=== PATIENT | female | born 1980 | race Caucasian/White ===

== ENCOUNTER 2022-09-22 08:00 | Outpatient (NON) | payer OTHER, SELFPAY | END 2022-09-22 08:01 | disposition home or self-care (01) | LOC: ANHLAB 09-24 13:27 | PROVIDERS: Visit Provider Nurse Practitioner | DX: C43.72 Malignant melanoma of left lower limb, including hip (principal) | CPT/HCPCS: 88305 ==

== ENCOUNTER 2022-10-08 00:57 | Day surgery (SDC) | payer OTHER, SELFPAY ==
[2022-09-30 15:08] VITALS: BMI 22.8
--- NOTE | 2022-09-30 15:16 | PC.NURSE ---
Report to the Outpatient Waiting Room, entrance under the green pavilion located off [facility], at time 0600 on date 10/08/22. Planned Procedure Time: 0730. Time changes happen often and if your time is changed the preop area will call you the afternoon before. - You and your visitor will be asked to self-screen and do not enter if you have any COVID symptoms. - A mask is optional within the hospital at this time. Patients may have clear liquids (water, carbonated beverages, clear teas, apple juice) until 3 hours prior to surgery with a maximum of 20 ounces. - No food from midnight until time of surgery Take the following medications with a SIP of water the morning of surgery: N/A DO NOT STOP ANY OF YOUR OTHER PRESCRIPTION MEDICATIONS PRIOR TO SURGERY ?EXCEPT THE FOLLOWING Medications to discontinue per physician: N/A Date to take last dose: N/A Please no make-up, nail yakut, hairspray, perfume, deodorant, or body powder the day of surgery. No jewelry (including any body piercings) or valuables the day of surgery, leave them at home. Please take a shower or bath the night before, or the morning of, surgery with an antibacterial soap. Wear comfortable, loose fitting clothing. - Jewelry must be removed prior to entering the operating room. Rings and piercings that are not removed may be cut off. - The hospital will not accept responsibility for valuables. - Please leave all valuables, including medications, at home the day of surgery. If you are going home after surgery, a licensed refrigerated company driver must drive you home. - NO public transportation without another adult if you receive anesthesia. - We recommend that an adult stay with you for 24 hours following discharge. - We also recommend that you do not drive, make important decision, drink alcoholic beverages, or take any drugs that were not prescribed by your health care provider for at least 24 hours after your discharge time. Follow any additional instructions given to you from your surgeon. If you or anyone in your household have experienced Covid symptoms in the past week, please notify your surgeon or the nurse liaison at the phone number below for possible testing. Telephone instructions given to PT - TEE STALLWORTH and asked if any additional questions and then verbalized understanding. Patient advised to call surgeon office or pre surgery nurse liaison [phone] if any additional questions.
--- NOTE | ~2022-10-08 | NM_ITS ---
EXAMINATION: NM sentinel node w imaging DATE: 10/08/2022 08:12 INDICATION: Left lower limb melanoma. TECHNIQUE: 0.496 mCi Tc-99m filtered sulfur colloid was injected in two aliquots around the skin lesi on in left lower limb. Scintigrams were obtained. FINDINGS: There is a sentinel node in left inguinal chain. IMPRESSION: 1. [place] node in left inguinal chain. Reviewed, dictated and finalized at location A.
[2022-10-08] MEDS: LACTATED RINGERS 1,000 ML 30 ML IV CONT (07:00)
[2022-10-08 07:50] VITALS: BP 128/79; PULSE 66; RESP 16; TEMP 36.6; O2SAT 100
--- NOTE | 2022-10-08 08:24 | P.PNAN_ITS ---
Anes - Initial Pre Proc Eval Procedure: Operation Date: 10/08/22 08:30 Proposed Procedures p Excision of Melanoma Left Anterior Lateral Upper Leg with - Bienvenido Bruce MD s [place] Lymph Node Biopsy - Bienvenido Bruce MD Date/Time: 10/08/22 08:24 Surgeon: Bienvenido Bruce MD Pre Op Diagnosis: melanoma Patient Data Age: 42 Gender: F Height: 1.73 m Weight: 70.7 kg Last Vital Signs Temp 97.9 F 10/08/22 07:50 Pulse 66 10/08/22 07:50 Resp 16 10/08/22 07:50 BP 128/79 10/08/22 07:50 Pulse Ox 100 10/08/22 07:50 O2 Del Method Room Air 10/08/22 07:50 Allergies Allergy/AdvReac Type Severity Reaction Status Date / Time amoxicillin Allergy Unknown Rash Verified 09/30/22 15:07 codeine AdvReac Unknown Vomiting Verified 09/30/22 15:07 Home Medications Medication Instructions Recorded Confirmed Type No Home Medications 09/30/22 09/30/22 History Patient hx anesthesia problems: post op nausea/vomiting (scopolamine patch applied) Family hx anesthesia problems: none Results Review: All pre-operative results and documents have been reviewed as part of the pre- operative evaluation. [facility] Social History Social History (System 06/08/19 @ 11:50 by Leslie Gómez) Smoking status: Never smoker Alcohol intake: current Drinks per week: 4 Substance use: current Substance use type: marijuana Other substance usage details: GUMMIES FOR SLEEP Living arrangements: with family Spiritual care concerns: No Anes - Eval Final PreProcedure Day of Procedure 10/08/22 08:24 Patient weight: normal Heart: regular rate and rhythm Lungs: clear to auscultation Airway: Mallampati scale class II Neurological: alert and oriented Last oral intake: >/= 8 hours ASA classification: II Emergent: no Anesthetic plan: proceed Anesthesia type and monitoring: general LMA and standard monitoring Results Review: All pre-operative results and documents have been reviewed as part of the pre- operative evaluation. Informed Consent: The patient's anesthetic plan and its attendant risks and benefits were discussed with the patient/family/POA. Questions were solicited and answers provided to the satisfaction of the patient/family/POA.
--- NOTE | 2022-10-08 08:31 | WPDHPUPDATE1 ---
History and Physical Update Update Date/Time: 10/08/22 08:31 History and Physical has been reviewed, including an updated exam of the patient. There are NO changes in the patient's condition. Risks, benefits, and alternatives have been discussed and questions answered. Patient agrees to proceed with procedure.
[2022-10-08] MEDS: SCOPOLAMINE 1.5 MG PATCH TRANSDERM (08:32)
--- NOTE | 2022-10-08 08:32 | W.PM.PROC2 ---
Procedure Note - Detailed Date of Procedure 10/08/22 Pre-op Diagnosis melanoma Post-op Diagnosis Same Procedure Performed 1. Wide excision left anterior thigh 7 cm with 8.5cm closure 2. Left inguinal sentinel lymph node biopsy Surgeon Bienvenido Bruce MD Anesthesia General Findings Single sentinel lymph node identified left inguinal Description of Procedure Preoperatively the risks, benefits, alternatives were discussed in extensive detail. I want him to be very realistic about the risks involved as well as expectations. Made sure answered all their questions to their satisfaction. We discussed NCCN guidelines. Discussed her choice to deviate from these guidelines. Risks, benefits, alternatives of these choices. I want to make sure she was well informed of her choice. We also discussed surgical margins.All questions were answered to her satisfaction. She understands despite optimal treatment she is at risk of metastatic spread. Consent obtained. Melanoma was marked in the preoperative holding area with her verification which was clearly visible. She had been injected by Radiology and verified the left inguinal sentinel lymph node. She was taken to the operating room placed supine on the operating room table. Anesthesia provided by anesthesiology. She was prepped and draped in a standard sterile fashion. Surgical time-out was taken. Identified the lymph node with the probe and was marked. 1% lidocaine and 0.25% Marcaine with epinephrine was used anesthetize locally. Fifteen blade used to make an incision over this. Dissection was continued into the node was identified and removed. Background was less than 10%. Single node identified no evidence of neurovascular other structure injury. I did cauterize the inflow and outflow lymphatic channel. This was closed with 2-0 Vicryl deep followed by 3-0 Monocryl, 4-0 Monocryl subcuticular, and tissue glue. I marked out the melanoma excision with well greater than 1 cm margins. I tried to maximize this margin based on her tissue compliance approaching medially 2 cm margin per her request. 1% lidocaine and 0.25% Marcaine with epinephrine was used anesthetize locally. A 15 blade used to make an incision around the mass. Dissection was continued down to the fascia and this was removed as a single specimen then sent to pathology. Verified strict hemostasis. This was closed in many layers to obliterate all space with 2-0 Vicryl deep followed by 3-0 Monocryl and vertical mattress 3-0 nylon. Dressings were placed. She tolerated the procedure well. Estimated Blood Loss 5 Drains No Packing No Pathology Yes (1. Melanoma left anterior thigh. 2. Left inguinal sentinel lymph node) Complications No immediate complications Condition Stable Disposition PACU
[2022-10-08] MEDS: ceFAZolin 2 GM/D5W 50 ML 2 GM/50 ML BAG IVPB (08:36)
[2022-10-08] MEDS: BUPivacaine HCL 0.25% PF 30 ML VIAL INFILTRATE (09:08)
[2022-10-08] MEDS: LIDO 1%/EPINEPHRINE 1:100,000 50 ML VIAL INFILTRATE (09:10)
--- NOTE | 2022-10-08 09:14 | SUR.OPER ---
[place] Lymph Node sent to [facility] per JAG Zheng. Received by Erma in Lab.
[2022-10-08] MEDS: KETOROLAC 30 MG/ML VIAL (*BKC) IV PUSH (09:20)
[2022-10-08 09:33] VITALS: BP 104/59; PULSE 59; RESP 12; O2SAT 100
[2022-10-08 10:00] VITALS: BP 97/58; PULSE 50; RESP 14
[2022-10-08 10:30] VITALS: BP 104/81; PULSE 74; RESP 14
[2022-10-08 10:50] VITALS: BP 115/62; PULSE 57; RESP 14
== END 2022-10-08 10:55 | disposition home or self-care (01) ==
PROVIDERS: Visit Provider Surgery Plastic and Reconstructive Surgery
PROC: (CPT 11606; principal; 2022-10-08 08:30)
PROC: (CPT 11606; 2022-10-08 08:30)
DX: C43.72 Malignant melanoma of left lower limb, including hip (principal); F12.90 Cannabis use, unspecified, uncomplicated
CPT/HCPCS: 11606; 12034; 38531; 78195; 88305; 88307; 88342; A9270; A9520; J0690; J1100; J1885; J2250; J2405; J2704; J3010; J7120

== ENCOUNTER 2022-11-13 11:28 | Outpatient (CLI) | payer OTHER, SELFPAY ==
[2022-11-13 11:53] LABS: Basophils Percent Auto 0.3 % (0.2-1.2); Eosinophils Absolute Auto 0.1 K/mm3 (0-0.3); Eosinophils Percent Auto 1.3 % (0-4.4); Hemoglobin 13.4 g/dL (12.0-15.0); Immature Granulocyte Absolute 0.02 K/mm3 (0.00-0.031); Immature Granulocyte Percent A 0.3 % (0-0.5); Lymphocytes Absolute Auto 1.83 K/mm3 (0.9-3.2); Mean Corpuscular HGB Conc 33.5 g/dl (32-36); Mean Corpuscular Hemoglobin 30.4 pg (26-34); Mean Corpuscular Volume 90.7 fl (80-100); Mean Platelet Volume 10.7 fl (7.4-10.4); Monocytes Absolute Auto 0.2 K/mm3 (0.1-0.6); Monocytes Percent Auto 3.4 % (2.6-8.5); Neutrophils Absolute Auto 3.9 K/mm3 (1.3-6.7); Neutrophils Percent Auto 64.7 % (45.5-73.1); Platelet Count Result 142 k/mm3 (150-375); Red Blood Count 4.41 M/mm3 (4.2-5.4); White Blood Count 6.1 K/mm3 (4.5-10.0)
[2022-11-13 16:07] LABS: Alanine Aminotransferase 16 U/L (6-35); Albumin Level 4.7 g/dL (3.5-5.1); Alkaline Phosphatase 57 U/L (38-126); Anion Gap 7 mmol/L (8-16); Aspartate Amino Transferase 26 U/L (14-36); Blood Urea Nitrogen 25 mg/dL (7-17); Calcium 9.5 mg/dL (8.4-10.2); Carbon Dioxide 28 mmol/L (22-30); Chloride 102 mmol/L (98-107); Estimated Glomerular Filt Rate > 60; Glucose 94 mg/dL (65-110); Lactate Dehydrogenase 156 U/L (120-246); Potassium 4.2 mmol/L (3.4-5.0); Sodium 137 mmol/L (137-145)
== END 2022-11-13 11:29 | disposition home or self-care (01) ==
PROVIDERS: Visit Provider Internal Medicine Hematology & Oncology
DX: C43.72 Malignant melanoma of left lower limb, including hip (principal)
CPT/HCPCS: 36415; 80053; 83615; 85025

== ENCOUNTER 2022-12-29 12:50 | Outpatient (NON) | payer OTHER, SELFPAY | END 2022-12-29 12:51 | disposition home or self-care (01) | LOC: ANHLAB 12-31 12:53 | PROVIDERS: Visit Provider Nurse Practitioner | DX: D22.61 Melanocytic nevi of right upper limb, including shoulder (principal) | CPT/HCPCS: 88305 ==

== ENCOUNTER 2023-02-03 11:58 | Outpatient (NON) | payer OTHER, SELFPAY | END 2023-02-03 11:59 | disposition home or self-care (01) | PROVIDERS: Visit Provider Nurse Practitioner | DX: D22.5 Melanocytic nevi of trunk (principal) | CPT/HCPCS: 88305 ==

== ENCOUNTER 2023-05-05 15:30 | Outpatient (CLI) | payer BC, SELFPAY ==
[2023-05-05 15:45] LABS: Basophils Percent Auto 0.3 % (0.2-1.2); Eosinophils Absolute Auto 0.1 K/mm3 (0-0.3); Eosinophils Percent Auto 1.4 % (0-4.4); Hematocrit 38.2 % (37.0-47.0); Hemoglobin 12.9 g/dL (12.0-15.0); Immature Granulocyte Absolute 0.01 K/mm3 (0.00-0.031); Immature Granulocyte Percent A 0.2 % (0-0.5); Mean Corpuscular HGB Conc 33.8 g/dl (32-36); Mean Corpuscular Hemoglobin 30.4 pg (26-34); Mean Corpuscular Volume 89.9 fl (80-100); Mean Platelet Volume 9.9 fl (7.4-10.4); Monocytes Absolute Auto 0.2 K/mm3 (0.1-0.6); Monocytes Percent Auto 3.7 % (2.6-8.5); Neutrophils Absolute Auto 3.6 K/mm3 (1.3-6.7); Neutrophils Percent Auto 60.4 % (45.5-73.1); Platelet Count Result 155 k/mm3 (150-375); Red Blood Count 4.25 M/mm3 (4.2-5.4); Red Cell Distribution Width 12.3 % (11.5-14.5); White Blood Count 5.9 K/mm3 (4.5-10.0)
[2023-05-05 16:32] LABS: Alanine Aminotransferase 16 U/L (6-35); Albumin Level 4.6 g/dL (3.5-5.1); Alkaline Phosphatase 54 U/L (38-126); Anion Gap 11 mmol/L (8-16); Aspartate Amino Transferase 29 U/L (14-36); Bilirubin,Total 0.8 mg/dL (0.2-1.3); Blood Urea Nitrogen 25 mg/dL (7-17); Calcium 9.2 mg/dL (8.4-10.2); Carbon Dioxide 24 mmol/L (22-30); Chloride 104 mmol/L (98-107); Estimated Glomerular Filt Rate > 60; Glucose 95 mg/dL (65-110); Lactate Dehydrogenase 157 U/L (120-246); Potassium 3.6 mmol/L (3.4-5.0); Sodium 139 mmol/L (137-145)
== END 2023-05-05 15:31 | disposition home or self-care (01) ==
LOC: ANHLAB 15:33
PROVIDERS: Visit Provider Internal Medicine Hematology & Oncology
DX: C43.72 Malignant melanoma of left lower limb, including hip (principal)
CPT/HCPCS: 36415; 80053; 83615; 85025

== ENCOUNTER 2023-11-10 11:27 | Outpatient (CLI) | payer BC, SELFPAY ==
[2023-11-10 11:41] LABS: Basophils Percent Auto 0.6 % (0.2-1.2); Eosinophils Absolute Auto 0.1 K/mm3 (0-0.3); Eosinophils Percent Auto 1.1 % (0-4.4); Hematocrit 38.9 % (37.0-47.0); Hemoglobin 12.7 g/dL (12.0-15.0); Immature Granulocyte Absolute 0.01 K/mm3 (0.00-0.031); Immature Granulocyte Percent A 0.2 % (0-0.5); Lymphocytes Absolute Auto 1.75 K/mm3 (0.9-3.2); Lymphocytes Percent Auto 32.2 % (18.3-44.2); Mean Corpuscular HGB Conc 32.6 g/dl (32-36); Mean Corpuscular Hemoglobin 30.2 pg (26-34); Mean Corpuscular Volume 92.6 fl (80-100); Monocytes Absolute Auto 0.2 K/mm3 (0.1-0.6); Monocytes Percent Auto 4.2 % (2.6-8.5); Neutrophils Absolute Auto 3.4 K/mm3 (1.3-6.7); Neutrophils Percent Auto 61.7 % (45.5-73.1); Platelet Count Result 157 k/mm3 (150-375); Red Cell Distribution Width 12.3 % (11.5-14.5); White Blood Count 5.4 K/mm3 (4.5-10.0)
[2023-11-10 12:07] LABS: Alanine Aminotransferase 19 U/L (6-35); Albumin Level 4.5 g/dL (3.5-5.1); Alkaline Phosphatase 59 U/L (38-126); Anion Gap 10 mmol/L (4-12); Aspartate Amino Transferase 41 U/L (14-36); Bilirubin,Total 0.9 mg/dL (0.2-1.3); Blood Urea Nitrogen 19 mg/dL (7-17); Calcium 9.3 mg/dL (8.4-10.2); Carbon Dioxide 28 mmol/L (22-30); Chloride 98 mmol/L (98-107); Estimated Glomerular Filt Rate > 60; Glucose 94 mg/dL (65-110); Lactate Dehydrogenase 143 U/L (120-246); Potassium 3.8 mmol/L (3.4-5.0); Sodium 136 mmol/L (137-145)
== END 2023-11-10 11:28 | disposition home or self-care (01) ==
LOC: ANHLAB 11:30
PROVIDERS: Visit Provider Internal Medicine Hematology & Oncology
DX: C43.72 Malignant melanoma of left lower limb, including hip (principal)
CPT/HCPCS: 36415; 80053; 83615; 85025

== ENCOUNTER 2023-12-24 07:00 | Outpatient (NON) | payer BC, SELFPAY | END 2023-12-24 07:01 | disposition home or self-care (01) | LOC: ANHLAB 12-25 07:17 | PROVIDERS: Visit Provider Surgery Plastic and Reconstructive Surgery | DX: D22.72 Melanocytic nevi of left lower limb, including hip (principal); L81.4 Other melanin hyperpigmentation; D48.5 Neoplasm of uncertain behavior of skin | CPT/HCPCS: 88305; 88342 ==

== ENCOUNTER 2024-05-10 11:05 | Outpatient (CLI) | payer BC, SELFPAY ==
[2024-05-10 11:22] LABS: Basophils Percent Auto 0.4 % (0.2-1.2); Eosinophils Percent Auto 0.4 % (0-4.4); Hematocrit 37.6 % (37.0-47.0); Hemoglobin 12.7 g/dL (12.0-15.0); Immature Granulocyte Absolute 0.02 K/mm3 (0.00-0.031); Immature Granulocyte Percent A 0.3 % (0-0.5); Lymphocytes Absolute Auto 1.75 K/mm3 (0.9-3.2); Lymphocytes Percent Auto 22.7 % (18.3-44.2); Mean Corpuscular HGB Conc 33.8 g/dl (32-36); Mean Corpuscular Hemoglobin 30.2 pg (26-34); Mean Corpuscular Volume 89.5 fl (80-100); Mean Platelet Volume 10.3 fl (7.4-10.4); Monocytes Absolute Auto 0.3 K/mm3 (0.1-0.6); Monocytes Percent Auto 3.5 % (2.6-8.5); Neutrophils Absolute Auto 5.6 K/mm3 (1.3-6.7); Neutrophils Percent Auto 72.7 % (45.5-73.1); Platelet Count Result 165 k/mm3 (150-375); Red Cell Distribution Width 12.5 % (11.5-14.5); White Blood Count 7.7 K/mm3 (4.5-10.0)
--- OUTSIDE RECORDS SUMMARY | 2024-05-10 12:51 | XMS_ITS | Encounter Summary ---
Author Organization [facility] Address [address] [place] [address] Care Team Providers Care Head Bookkeeper Name Role Phone Unavailable Primary Care Provider Unavailabl e Encounter Details Date Type Department Care Team (Late st Contact Info) Description 05/07/2024 External Device Data ST[place] ABSTRACTION Provider, Abstract NO ADDRESS ON FILE Social History Tobacco Use Types Packs/Day Years Used Date Smoking Tobacco: Never Smokeless Tobacco: Never Alcohol Use Standard Drinks/Week Comments Yes 1 (1 standard drink = 0.6 oz pur e alcohol) Comments No Sex and Gender Information Value Date Recorded Sex Assigned at Not on file Legal Sex Female 2:10 PM CDT Gender Identity Not on file Sexual Orientation Not on file documented as of this encounter Plan of Treatment Upcoming Encounters Date Type Department Care Team (Late st Contact Info) Description 05/13/2024 9:15 AM CDT Office Visit [facility] Oncology and Hematology - [place] [address] [place] [address] [facility] [address] [place] [address] Shilo Canas MD [address] [facility] [address] [place] [address] documented as of this encounter Visit Diagnoses Not on filedocumented in this encounter
--- OUTSIDE RECORDS SUMMARY | 2024-05-10 12:51 | XMS_ITS | Referral Summary ---
Author Organization [facility] Address [address] [place] [address] Care Team Providers Care Color Specialist Name Role Phone Leon Durán MD Primary Care Provider [phone] Christiano Calvin MD Unavailable + [phone] Allergies Active Allergy Reactions Criticality Noted Date Comments Amoxicillin Rash Reaction: RASH Codeine Nausea only,Vomiting Reaction: NAUSEA, VOMITING, Fexofenadine Rash Reaction: RASH Medications No known medications Active Problems Problem Noted Date Diagnosed Date Encounter to establish care 05/08/2021 Assessment & Plan (05/08/2021 10:13 AM PATHOLOGY SPECIALIST): A initial well visit to establish care has been performed today. Susan Ball is up to date on screening tests. She is in need of None- no screening indicated at this time- these have been ordered. She is not up to date on needed preventative vaccinations. Immunizations Immunization Administration Dates Next Due Influenza, Quadrivalent, Bailey l Culture-based MDCK, Preservative Free, Antibiotic Free, Intramuscular 12/10/2020,12/16/2017 Influenza, Quadrivalent, Spl it, Preservative Free, Intramuscular 12/03/2019,12/22/2018 Tdap 06/28/2013 Social History Tobacco Use Types Packs/Day Years Used Date Smoking Tobacco: Never Smokeless Tobacco: Never Social Connection and Isolat ion Panel [NHANES] Answer Date Recorded Frequency of Communication w ith Friends and Family Not on file 05/08/2021 Frequency of Social Gatherin gs with Friends and Family Not on file 05/08/2021 How often do you attend [facility] or hindu services? More than 4 times per year 05/08/2021 Do you belong to any clubs o r organizations such as restorationism groups, unions, fraternal or athletic groups, or school groups? Yes 05/08/2021 How often do you attend meet ings of the clubs or organizations you belong to? More than 4 times per year 05/08/2021 Are you , , di vorced, , never , or living with a partner? 05/08/2021 AUDIT-C Answer Date Recorded Q1: How often do you have a drink containing alc ohol? 2-4 times a month 05/08/2021 Q2: How many drinks containi ng alcohol do you have on a typical day when you are drinking? 3 or 4 05/08/2021 Q3: How often do you have si x or more drinks on one occasion? 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 Not on file Not on file Last Filed Vital Signs Vital Sign Reading Time Taken Comments Blood Pressure 120/80 05/08/2021 9:31 AM PATHOLOGY SPECIALIST Pulse 67 05/08/2021 9:31 AM PATHOLOGY SPECIALIST Temperature 36 C (96.8 F) 05/08/2021 9:31 AM PATHOLOGY SPECIALIST Respiratory Rate 16 05/08/2021 9:31 AM PATHOLOGY SPECIALIST Oxygen Saturation 98% 05/08/2021 9:31 AM PATHOLOGY SPECIALIST Inhaled Oxygen Concentration - - Weight 68 kg (150 lb) 05/08/2021 9:31 AM PATHOLOGY SPECIALIST Height 172.7 cm (5' 8 ) 05/08/2021 9:31 AM PATHOLOGY SPECIALIST Body Mass Index 22.81 05/08/2021 9:31 AM PATHOLOGY SPECIALIST Plan of Treatment Not on file Procedures Procedure Name Priority Date/Time Associated Diagnosis Comments HM PAP SMEAR WITH HPV Routine 12/27/2020 from Last 3 Months or Most Recently Relevant to Health Maintenance Results * HM PAP SMEAR WITH HPV (12/27/2020) Scribed Pap Smear w/HPV Normal us Historical Provider HEALTH MAINTENANCE Final Result from Last 3 Months or Most Recently Relevant to Health [place] [address] [place] [address] Care Teams Color Specialist Relationship Specialty Start Date End Date Leon Durán MD [address] [place] [address] PCP - General Family Medicine 05/07/21 Christiano Calvin MD [address] [place] [address] DR GONSALES B [address] [address] Consulting Physician Obstetrics and Gynecology 05/08/21
--- OUTSIDE RECORDS SUMMARY | 2024-05-10 12:51 | XMS_ITS | Clinical Summary ---
Author Organization [facility] Address [address] [place] [address] Care Team Providers Care Dental Appliance Fixer Name Role Phone Leon Durán MD Primary Care Provider [phone] Christiano Calvin MD Unavailable + [phone] Allergies Active Allergy Reactions Criticality Noted Date Comments Amoxicillin Rash Reaction: RASH Codeine Nausea only,Vomiting Reaction: NAUSEA, VOMITING, Fexofenadine Rash Reaction: RASH Medications No known medications Active Problems Problem Noted Date Diagnosed Date Encounter to establish care 05/08/2021 Assessment & Plan (05/08/2021 10:13 AM GLOVE OPERATOR): A initial well visit to establish care [...] it, Preservative Free, Intramuscular 12/03/2019,12/22/2018 Tdap 06/28/2013 Family History Medical History Relation Name Comments Hypertension Brother 1 Kawasaki disease Brother 2 Glaucoma Father Hyperlipidemia Father Hypertension Father Hypertension Maternal Grandfather Pancreatic cancer Maternal Grandfather COPD Maternal Grandmother Cardiomyopathy Maternal Grandmother No Known Problems Mother Abdominal Aortic Aneurysm Paternal Grandfather Hyperlipidemia Paternal Grandfather Hypertension Paternal Grandfather Colon cancer Paternal Grandmother Hyperlipidemia Paternal Grandmother Hypertension Paternal Grandmother Osteoporosis Paternal Grandmother Relation Name Status Comments Brother 1 Alive Brother 2 Father Alive Maternal Grandfather Maternal Grandmother Mother Alive Paternal Grandfather Paternal Grandmother Alive Social History Tobacco Use Types Packs/Day Years Used Date Smoking Tobacco: Never Smokeless Tobacco: Never Social Connection and Isolat ion Panel [NHANES] Answer Date Recorded Frequency of Communication w ith Friends and Family Not on file 05/08/2021 Frequency of Social Gatherin gs with Friends and Family Not on file 05/08/2021 How often do you attend chur or confucianism services? More than 4 times per year 05/08/2021 Do you belong to any clubs o r organizations such as islam groups, unions, fraShowNearby or athletic groups, or school groups? 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 Not on file Not on file Obstetrics History Last Filed Vital Signs Vital Sign Reading Time Taken Comments Blood Pressure 120/80 05/08/2021 9:31 AM GLOVE OPERATOR Pulse 67 05/08/2021 9:31 AM GLOVE OPERATOR Temperature 36 C (96.8 F) 05/08/2021 9:31 AM GLOVE OPERATOR Respiratory Rate 16 05/08/2021 9:31 AM GLOVE OPERATOR Oxygen Saturation 98% 05/08/2021 9:31 AM GLOVE OPERATOR Inhaled Oxygen Concentration - - Weight 68 kg (150 lb) 05/08/2021 9:31 AM GLOVE OPERATOR Height 172.7 cm (5' 8 ) 05/08/2021 9:31 AM GLOVE OPERATOR Body Mass Index 22.81 05/08/2021 9:31 AM GLOVE OPERATOR Plan of Treatment Health Maintenance Due Date Last Done Comments Breast Cancer Screening-Mammogram 1981 Depression Screening 1981 Hepatitis C Screening 1981 Varicella Vaccines (1 of 2 - 13+ 2-dose series) 1994 Hepatitis B Screening 07/18/1999 Cervical Cancer Screening 12/27/2021 12/27/2020 Regular Well Visit/Exam 18-64 05/08/2022 05/08/2021 DTaP/Tdap/Td Vaccine (2 - Td or Tdap) 06/29/2023 06/28/2013 Covid-19 Vaccine ( season) 2023 02/09/2021, 05/30/2020, 05/02/2020 Influenza Vaccine (#1) 2023 , 12/03/2019, 12/22/2018, Additional history exists HPV Vaccines Aged Out No longer eligi ble based on patient's age to complete this topic Pneumococcal vaccine <65 Aged Out No longer eligible based on patient's age to complete this topic Procedures Procedure Name Priority Date/Time Associated Diagnosis Comments PAP SMEAR WITH HPV Routine 12/27/2020 from Last 3 Months or Most Recently Relevant to Health Maintenance Results * PAP SMEAR WITH HPV (12/27/2020) Scribed Pap Smear w/HPV Normal us Historical Provider HEALTH MAINTENANCE Final Result from Last 3 Months or Most Recently Relevant to Health Maintenance [place] [address] [facility] [place] [address] Care Teams Dental Appliance Fixer Relationship Specialty Start Date End Date Leon Durán MD [address] [place] [address] PCP - General Family Medicine 05/07/21 Christiano Calvin MD [address] [place] [address] DR GONSALES [address] [address] Consulting Physician Obstetrics and Gynecology 05/08/21
--- OUTSIDE RECORDS SUMMARY | 2024-05-10 12:51 | XMS_ITS | Clinical Summary ---
Author Organization [facility] Address [address] [place] [address] Phone Care Team Providers Care Assistant Research Scientist Name Role Phone Leon Durán MD Primary Care Provider [phone] Social History Tobacco Use Types Packs/Day Years Used Date Smoking Tobacco: Never Assessed Comments No Sex and Gender Information Value Date Recorded Sex Assigned at Not on file Legal Sex Female 9:59 AM CDT Gender Identity Not on file Sexual Orientation Not on file Plan of Treatment Health Maintenance Due Date Last Done Comments Hepatitis C Virus (HCV) Screening 1981 Hepatitis B Immunization (1 of 3 - 19+ 3-dose series) 2000 Pap Smear 2002 Cervical Cancer Screening (CCS) 07/18/2011 HPV/Cotest 07/18/2011 Influenza Immunization (#1) 11/01/202310/31, 12/17/2021, 12/10/2020, Additional history exists SARS-COV-2 Immunization ( season) 2023 11/15/2022, 02/09/2021, 05/30/2020, Additional history exists Mammogram 10/27/2024 10/28/2023, 07/31, 07/24/2021 Respiratory Syncytial Virus (RSV) Immunization (Adult) (1 - 1-dose 75+ series) 2056 DTaP/Tdap/Td Immunization Discontinued 06/28/2013 TdaP Immunization Completed 06/28/2013 Discussion re Starting/Frequency of Mammograms Completed 10/28/2023, 08/15/2022, 07/24/2021 Meningococcal Immunization (ACWY) Aged Out No longer eligible based on patient's age to complete this topic Pneumococcal Immunization Combined Aged Out No longer eligible based on patient's age to complete this topic Rotavirus Immunization Aged Out No lo nger eligible based on patient's age to complete this topic Procedures Procedure Name Priority Date/Time Associated Diagnosis Comments BENJAMIN SCREENING BILATERAL DIGITAL W CAD W LAURA Routine 10/28/2023 10:04 AM CDT Visit for screening mammogram from Last 3 Months or Most Recently Relevant to Health Maintenance Results * BENJAMIN SCREENING BILATERAL DIGITAL W CAD W LAURA (10/28/2023 10:04 AM CDT) Anatomical Region Laterality Modality breast Bilateral Mammography 10/28/2023 9:59 AM CDT Narrative 10/29/2023 11:11 AM CDT - BENJAMIN SCREENING BILATERAL DIGITAL W CAD W LAURA BILATERAL DIGITAL SCREENING MAMMOGRAM 3D/2D WITH CAD WITH MEDIOLATERAL OBLIQUE CRANIOCAUDAL: 10/28/2023 The study was acquired using digital technology and interpreted from soft copy. Current study was also evaluated with ICAD version 7.2. 2D digital mammographic views, as well as 3D digital tomosynthesis were performed in the CC and MLO projections. CLINICAL: Routine screening. Patient has no complaints. Personal history of melanoma. Maternal grandmother had breast cancer. COMPARISONS: Comparison is made to exams dated: 08/15/2022 and 07/24/2021 [facility]. BREAST TISSUE:The tissue of both breasts is heterogeneously dense. This may lower the sensitivity of mammography. FINDINGS: No significant masses, calcifications, or other findings are seen in either breast. There has been no significant interval change. IMPRESSION: BI-RAD 1 NEGATIVE There is no mammographic evidence of malignancy. A 1 year screening mammogram is recommended. A letter will be sent to the patient with these results. The patient will be entered into a reminder system with a target due date of 1 year for her next screening exam. Electronically signed by: Barbara subramanian/penrad:10/29/2023 00:01:02 Digital Sales Manager(s): RT Carla(R)(M), [facility] letter sent: Normal Exam Reading location: [facility] BI-RADS: 1 Negative Procedure Note Barbara Mckeon MD - 10/29/2023 - BENJAMIN SCREENING BILATERAL DIGITAL W CAD W LAURA BILATERAL DIGITAL SCREENING MAMMOGRAM 3D/2D WITH CAD WITH MEDIOLATERAL OBLIQUE CRANIOCAUDAL: 10/28/2023 The study was acquired using digital technology and interpreted from soft copy. Current study was also evaluated with ICAD version 7.2. 2D digital mammographic views, as well as 3D digital tomosynthesis were performed in the CC and MLO projections. CLINICAL: Routine screening. Patient has no complaints. Personal history of melanoma. Maternal grandmother had breast cancer. COMPARISONS: Comparison is made to exams dated: 08/15/2022 and 07/24/2021 [facility]. BREAST TISSUE:The tissue of both breasts is heterogeneously dense. This may lower the sensitivity of mammography. FINDINGS: No significant masses, calcifications, or other findings are seen in either breast. There has been no significant interval change. IMPRESSION: BI-RAD 1 NEGATIVE There is no mammographic evidence of malignancy. A 1 year screening mammogram is recommended. A letter will be sent to the patient with these results. The patient will be entered into a reminder system with a target due date of 1 year for her next screening exam. Electronically signed by: Barbara subramanian/timmy:10/29/2023 00:01:02 Digital Sales Manager(s): RT Carla(R)(M), [facility] letter sent: Normal Exam Reading location: [facility] BI-RADS: 1 Negative us Christiano Calvin MD IMG MAMMO ORDERABLES F inal Result from Last 3 Months or Most Recently Relevant to Health Maintenance [place] [address] [facility] Care Teams Assistant Research Scientist Relationship Specialty Start Date End Date Leon Durán MD [address] [place], [place] [id number] PCP - General Family Medicine 07/24/21
--- OUTSIDE RECORDS SUMMARY | 2024-05-10 12:51 | XMS_ITS | Clinical Summary ---
[facility] Address [address] [place] [address] [place] [address] Care Team Providers Care Hatch Boss Name Role Phone Unavailable Primary Care Provider Unavailabl e Allergies Active Allergy Reactions Criticality Noted Date Comments Amoxicillin Rash Low 11/11/2022 Codeine Nausea and Vomiting Low 11/11/2022 Reaction: NAUSEA, VOMITING, Morphine Nausea and Vomiting Low 11/11/2022 Medications No known medications Active Problems No known active problems Encounters Date Type Department Care Team Description 05/07/2024 External Device Data [facility] Provider, Abstract 05/06/2024 External Device Data [facility] Provider, Abstract 05/04/2024 External Device Data [facility] Provider, Abstract 04/20/2024 External Device Data [facility] Provider, Abstract 04/12/2024 External Device Data [facility] Provider, Abstract 03/23/2024 External Device Data [facility] Provider, Abstract from Last 3 Months Family History Medical History Relation Name Comments No Known Problems Brother 1 No Known Problems Brother 2 No Known Problems Child 1 No Known Problems Child 2 No Known Problems Child 3 No Known Problems Child 4 No Known Problems Father No Known Problems Mother Relation Name Status Comments Brother 1 Alive Brother 2 Alive Child 1 Alive Child 2 Alive Child 3 Alive Child 4 Alive Father Alive Mother Alive Social History Tobacco Use Types Packs/Day Years Used Date Smoking Tobacco: Never Smokeless Tobacco: Never Tobacco Cessation:Counseling Given: Not Answered Alcohol Use Standard Drinks/Week Comments Yes 1 (1 standard drink = 0.6 oz pur e alcohol) Comments No Sex and Gender Information Value Date Recorded Sex Assigned at Not on file Legal Sex Female 2:10 PM CDT Gender Identity Not on file Sexual Orientation Not on file Last Filed Vital Signs Vital Sign Reading Time Taken Comments Blood Pressure 128/81 05/12/2023 3:29 PM CDT Pulse 63 05/12/2023 3:29 PM CDT Temperature 36.8 C (98.3 F) 11/11/2022 4:09 PM CDT Respiratory Rate 14 05/12/2023 3:29 PM CDT Oxygen Saturation 98% 05/12/2023 3:29 PM CDT Inhaled Oxygen Concentration - - Weight 70.3 kg (155 lb) 05/12/2023 3:29 PM CDT Height 174 cm (5' 8.5 ) 11/11/2022 4:09 PM CDT Body Mass Index 23.22 11/11/2022 4:09 PM CDT Plan of Treatment Upcoming Encounters Date Type Department Care Team (Late st Contact Info) Description 05/13/2024 9:15 AM CDT Office Visit [facility] Oncology and Hematology [facility] [address] [facility] [address] [place] [address] Shilo Canas MD [address] [facility] [address] [place] [address] Health Maintenance Due Date Last Done Comments HEPATITIS B VACCINES (1 of 3 - 19+ 3-dose series) 2000 CERVICAL CANCER SCREENING 07/18/2011 DTAP/TDAP/TD VACCINES (2 - Td or Tdap) 06/29/2023 06/28/2013 INFLUENZA VACCINE (#1) 2023 , 12/17/2021, 12/10/2020, Additional history exists COVID-19 Vaccine ( season) 2023 11/15/2022, 02/09/2021, 05/30/2020, Additional history exists Preventative Visit- Commercial 03/02/2024 01/15/2023, 01/02/2022, 05/08/2021, Additional history exists BREAST CANCER SCREENING 10/27/2024 10/28/19 24, 08/15/2022, 07/24/2021 HPV VACCINES Aged Out No longer eligi ble based on patient's age to complete this topic Insurance [facility] BLUE ACCESS/TRUE BLUE PPO
--- OUTSIDE RECORDS SUMMARY | 2024-05-10 12:51 | XMS_ITS | Data Portability ---
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 discussed periods; has tried some OCPs in past, always feels emotional might try a patch in future kids all doing well Not available 12/27/2020 14:34:14 01/02/2022 01/02/2022 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 TECHNOLOGIST exam normal just did HArd 76 discussed drinking over a gallon aof water a day and urinary issues no real JULEE at this point Not available 01/02/2022 14:36:35 01/15/2023 01/15/2023 plumbing technician exam benign melanoma DX rocked her world this past summer kids all doing well Not available 01/15/2023 16:19:20 01/18/2024 01/18/2024 plumbing technician exam 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 no new issues good spirits Not available 01/18/2024 12:32:06 Plan of Treatment Reminders Order Date Submit Date Provider Last Modified By Organization Details Last Modified Time Details Appointments ANNUAL 30 2024 02:00P M Ailyn Huffman MD Not available Not available Not available Lab cytology report, thin prep, smear or scraping, cervical or vaginal 2021 022 [facility], [address], [address], [place], [address], 01/09/2022 16:12:37 unlisted lab - igp, rfx aptima HPV ascu 2019 020 [facility], [address], [address], [place], [address], 12/23/2019 11:12:35 Referral None recorded. Procedures None recorded. Surgeries None recorded. Imaging MAMMO, screening , digital, bilateral 2021 022 [facility]) Scheduling, [address] [place], [address], 05/12/2022 09:26:10 MAMMO, screening , digital, bilateral 2020 021 [facility] ([facility]) Scheduling, [address] [place], [address], 07/22/2021 11:35:36 Medication Orders None recorded. Patient TargetsNo targets recorded. Patient Instructions Encounter Date Encounter Id Patient Instructions Last Modified By Organization Details Last Modified Time 12/27/2020 [id number] learning about breast cancer screening Not available 12/27/2020 14:14:35 01/02/2022 [id number] learning about breast cancer screening Not available 01/02/2022 14:20:26 Reason for Referral None Reported. Results Created Date Observation Date Name Description Value Unit Range Abnormal Flag Note LastModifiedBy Organization Detail LastModifiedTime 12/20/1912/23/2019 pap, IG + refle x HR HPV diagnosis: Commen t NEGAT KATHI FOR INTRA EPITH ELIAL LESIO N OR SHENA CASTELLON . Not Available [facility] ([facility]) [address], [place], [address], 12/23/2019 11:12:35 12/20/1912/23/2019 pap, IG + refle x HR HPV specimen adequacy: Jose Miguel chavez Satis facto ry for evalu ation . Endoc ervic al and/o r squam ous metap lasti c cells (endo cervi neptali compo nent) are prese nt. Not Available [facility] ([facility]) [address] [place], [address], 12/23/2019 11:12:35 12/20/1912/23/2019 pap, IG + refle x HR HPV clinician provided ICD10: Jose Miguel chavez Z01.4 19 Not Available [facility] ([facility]) [address] [place], [address], 12/23/2019 11:12:35 12/20/1912/23/2019 pap, IG + refle x HR HPV performed by: Kristian Castaneda (ASCP ) Not Available [facility] ([facility]) [address] [place], [address], 12/23/2019 11:12:35 12/20/1912/23/2019 pap, IG + refle x HR HPV . . Not Available [facility] ([facility]) [address] [place], [address], 12/23/2019 11:12:35 12/20/1912/23/2019 pap, IG + refle x HR HPV note: Jose Miguel chavez The Pap smear is a scree supriya test desig jesu to aid in the detec tion of yesica ligna nt and malig nant condi tions of the uteri ne cervi x. It is not a diagn ostic proce dure and shoul d not be used as the sole means of detec ting cervi neptali cance r. Both false -posi tive and false -nega tive repor ts do occur . Not Available [facility] ([facility]) [address] [place], [address], 12/23/2019 11:12:35 12/20/19 20 12/23/2019 pap, IG + refle x HR HPV test methodology: Commen t This liqui d based ThinP rep(R ) pap test was scree jesu with the use of an image guide luis e tello Not Available [facility] ([facility]) [address] [place], [address], 12/23/2019 11:12:35 12/20/19 20 12/23/2019 pap, IG + refle x HR HPV . Commen t The HPV DNA refle x crite weston were not met with this speci men resul t there fore, no HPV testi ng was perfo rmed. Not Available [facility] ([facility]) [address] [place], [address], 12/23/2019 11:12:35 12/28/19 21 12/31/2020 IGP, RFX APTIM A HPV ASCU diagnosis: Commen t NEGAT KATHI FOR INTRA EPITH ELIAL LESSTELLA N OR SHENA CASTELLON . CELLU LAR KAYE ES ASSOC IATED WITH INFLA MMATI ON ARE PRESE NT. Not Available [facility] ([facility]) [address], [place], [address], 12/31/2020 16:09:56 12/28/19 21 12/31/2020 IGP, RFX APTIM A HPV ASCU specimen adequacy: Commen t Satis facto ry for evalu ation . Endoc ervic al and/o r squam ous metap lasti c cells (endo cervi neptali compo nent) are prese nt. Not Available [facility] ([facility]) [address], [place], [address], 12/31/2020 16:09:56 12/28/19 21 12/31/2020 IGP, RFX APTIM A HPV ASCU clinician provided ICD10: Commen t Z12.4 Not Available [facility] ([facility]) [address] [place], [address], 12/31/2020 16:09:56 12/28/19 21 12/31/2020 IGP, RFX APTIM A HPV ASCU performed by: Kristian Harper (ASCP ) Not Available [facility] ([facility]) [address] [place], [address], 12/31/2020 16:09:56 12/28/19 21 12/31/2020 IGP, RFX APTIM A HPV ASCU . . Not Available [facility] ([facility]) [address] [place], [address], 12/31/2020 16:09:56 12/28/19 21 12/31/2020 IGP, RFX APTIM A HPV ASCU note: Jose Miguel chavez The Pap smear is a scree supriya test desig jesu to aid in the detec tion of yesica ligna nt and malig nant condi tions of the uteri ne cervi x. It is not a diagn ostic proce dure and shoul d not be used as the sole means of detec ting cervi neptali cance r. Both false -posi tive and false -nega tive repor ts do occur . Not Available [facility] ([facility]) [address] [place], [address], 12/31/2020 16:09:56 12/28/19 21 12/31/2020 IGP, RFX APTIM A HPV ASCU test methodology: Jose Miguel chavez This liqui d based ThinP rep(R ) pap test was scree jesu with the use of an image guide luis e systmarielos m. Not Available [facility] ([facility]) [address] [place], [address], 12/31/2020 16:09:56 12/28/19 21 12/31/2020 IGP, RFX APTIM A HPV ASCU . Jose Miguel t The HPV DNA refle x crite weston were not met with this speci men resul t there fore, no HPV testi ng was perfo rmed. Not Available [facility] ([facility]) [address] [place], [address], 12/31/2020 16:09:56 01/03/20 22 01/09/2022 IGP, RFX APTIM A HPV ASCU diagnosis: Jose Miguel chavez NEGAT KATHI FOR INTRA EPITH ELIAL LESIO N OR SHENA CASTELLON . Not Available [facility] ([facility]) [address], [place], [address], 01/09/2022 16:12:37 01/03/20 22 01/09/2022 IGP, RFX APTIM A HPV ASCU specimen adequacy: Jose Miguel chavez Satis facto ry for evalu ation . Endoc ervic al and/o r squam ous metap lasti c cells (endo cervi neptali compo nent) are prese nt. Not Available [facility] ([facility]) [address], [place], [address], 01/09/2022 16:12:37 01/03/20 22 01/09/2022 IGP, RFX APTIM A HPV ASCU clinician provided ICD10: Jose Miguel chavez Z01.4 19 Not Available [facility] ([facility]) [address], [place], [address], 01/09/2022 16:12:37 01/03/20 22 01/09/2022 IGP, RFX APTIM A HPV ASCU performed by: Jose Miguel flores , Cytot demetria chavez (ASCP ) Not Available [facility] ([facility]) [address] [place], [address], 01/09/2022 16:12:37 01/03/20 22 01/09/2022 IGP, RFX APTIM A HPV ASCU . . Not Available [facility] ([facility]) [address] [place], [address], 01/09/2022 16:12:37 01/03/20 22 01/09/2022 IGP, RFX APTIM A HPV ASCU note: Commen t The Pap smear is a scree supriya test desig jesu to aid in the detec tion of yesica ligna nt and malig nant condi tions of the uteri ne cervi x. It is not a diagn ostic proce dure and shoul d not be used as the sole means of detec ting cervi neptali cance r. Both false -posi tive and false -nega tive repor ts do occur . Not Available [facility] ([facility]) [address] [place], [address], 01/09/2022 16:12:37 01/03/20 22 01/09/2022 IGP, RFX APTIM A HPV ASCU test methodology: - The Thin Prep( R) Image r was unabl e to read this speci men. There fore a manua l revie w was perfo rmed. Not Available [facility] ([facility]) [address], [place], [address], 01/09/2022 16:12:37 01/03/20 22 01/09/2022 IGP, RFX APTIM A HPV ASCU . Commen t The HPV DNA refle x crite weston were not met with this speci men resul t there fore, no HPV testi ng was perfo rmed. Not Available [facility] ([facility]) [address], [place], [address], 01/09/2022 16:12:37 07/26/19 22 07/24/2021 MAMMO , joe walkerg, digit al, bilat eral No observ ation record ed. [facility] Scheduling [address] [place], [address], 07/25/2021 10:58:50 08/20/19 23 08/15/2022 MAMMO , marixae supriya, digit al, bilat eral No observ ation record ed. [facility] ( [facility]) Scheduling [address] [place], [address], 08/19/2022 11:29:56 10/30/1910/29/2023 MAMMO , scree supriya, digit al, bilat eral No observ ation record ed. [facility] Not Available 2023 09:51:08 Result Notes None recorded. Problems Name Problem SNOMED Code Status Onset Date Resolution Date Notes Provider Name and Address Organization Details Recorded Time 64196245 Completed 201708/19/2017 UZMA Gaona, [facility] 8 14:13:57 No current problems or disability [id number] Active RANDA Rivera, [facility] 8 10:38:52 [id number] Completed 201610/09/2016 UZMA Gaona, [facility] 8 14:13:57 Problem Notes None recorded. Procedures Surgical History Date Name Laterality Status Provider Name and Address Organization Details Recorded Time 4 Most Recent Mammogram completed Maria D Potter RN [facility] 10/30/2023 09:39:55 2 Date of Last Pap Smear completed Maria D Potter RN [facility] 01/09/2022 16:15:24 Imaging Results Imaging Date Name Status LastModified by [facility] Details LastModified Time 07/24/2021 MAMMO, screening, digital, bilateral completed [facility] ( [facility]) Scheduling [address] [place], [address], 07/25/2021 10:58:50 08/15/2022 MAMMO, screening, digital, bilateral completed [facility] ( [facility]) Scheduling [address] [place], [address], 08/19/2022 11:29:56 10/29/2023 MAMMO, screening, digital, bilateral completed [facility] Information not available 10/30/2023 09:51:08 Procedure Notes None recorded. Medical Equipment None Reported. Allergies Allergen ID Allergen Name Allergen Category Reaction Reaction Severity Criticality Documentation Date Start Date Code Code System Note Provider Name and Address Organization Details Recorded Time 21570 codeine medicatio n Not available Not available Not available 09/18/2014 9260 RxNorm Not Available Not Available Not Available Medications Name Sig Start Date Stop Date Status Note LastModified by Organization Details LastModified Time ibuprofen 800 mg tablet TAKE 1 TABLET BY MOUTH EVERY EIGHT HOURS NEEDED FOR PAIN active Not Available Not Available No t Available triamcinolo ne acetonide 0.1 % topical cream APPLY TOPICALLY TWICE A DAY TO ELBOWS NEEDED FOR RASH X 30 DAYS active Not Available Not Available No t Available norethindro ne (contracept kathi) 0.35 mg tablet TAKE 1 TABLET BY MOUTH EVERY DAY 12/27 completed Not Available Not Available Not Available DentaGel 1.1 % 01/02 completed Not Available Not Available Not Available Sprintec (28) 0.25 mg-35 mcg tablet Take 1 tablet every day by oral route for 28 days. 12/27 completed Not Available Not Available Not Available nitrofurant oin monohydrate /macrocryst als 100 mg capsule 12/27 completed Not Available Not Available Not Available Viorele (28) 0.15 mg-0.02 mg (21)/0.01 mg (5) tablet one po qday 12/27 completed Not Available Not Available Not Available PreviDent 5000 Booster Plus 1.1 % dental paste 01/02 completed Not Available Not Available Not Available Afluria 3307-4572(P F) 45 mcg (15 mcg x 3)/0.5 mL intramuscul ar syringe 12/27 completed Not Available Not Available Not Available Afluria (PF) 45 mcg (15 mcg x 3)/0.5 mL IM syringe 12/27 completed Not Available Not Available Not Available Vitals Date Recorded Body weight Systolic blood pressure Diastolic blood pressure Provider Name and Address Organization Details Last Updated DateTime 12/20/2019 35506.53 g 120 mm[Hg] 76 mm[Hg] LORAINE Cruz [place] - [facility] 12/20/2019 14:29:57 Date Recorded Body weight Systolic blood pressure Diastolic blood pressure Provider Name and Address Organization Details Last Updated DateTime 12/27/2020 64395.08 g 114 mm[Hg] 76 mm[Hg] Sunita Starkey [facility] 12/27/2020 14:08:31 Date Recorded Body height Body mass index (BMI) Body weight Systolic blood pressure Diastolic blood pressure Provider Name and Address Organization Details Last Updated DateTime 01/02/2022 172.72 cm 21.2 kg/m2 86528.42 g 130 mm[Hg] 72 mm[Hg] Sunita Starkey [facility] 2 14:02:49 Date Recorded Body height Body mass index (BMI) Body weight Systolic blood pressure Diastolic blood pressure Provider Name and Address Organization Details Last Updated DateTime 01/15/2023 172.72 cm 23.6 kg/m2 20965.25 g 140 mm[Hg] 86 mm[Hg] Sunita Starkey [facility] 3 15:48:56 Date Recorded Body height Body mass index (BMI) Body weight Systolic blood pressure Diastolic blood pressure Provider Name and Address Organization Details Last Updated DateTime 01/18/2024 172.72 cm 24 kg/m2 31592.59 g 142 mm[Hg] 93 mm[Hg] Sunita Starkey [facility] 4 12:09:38 Social History Question Answer Notes LastModified by Organizat ion Details LastModified Time Tobacco Smoking Status Never Smoker RANDA Britton, [facility] 09/18/2014 15:54:55 Do You Have An Advance Directive? No Information not available 12/20/2019 What Is Your Level Of Alcohol Consumption? Occasional Information not available 12/20/2019 Is Blood Transfusion Acceptable In An Emergency? Yes Information not available 12/20/2019 What Is Your Level Of Caffeine Consumption? Occasional Information not available 12/20/2019 How Much Tobacco Do You Chew? None Information not available 12/20/2019 In The 14 Days Before Symptom Onset, Have You Had Close Contact With A Laboratory-confir [facility]-19 While That Case Was Ill? No Information not available 12/27/2020 In The 14 Days Before Symptom Onset, Have You Had Close Contact With A Person Who Is Under Investigation For COVID-19 While That Person Was Ill? No Information not available 12/27/2020 Have You Been To An Area Known To Be High Risk For COVID-19? No Information not available 12/27/2020 What Type Of Diet Are You Following? REGULAR Information not available 12/20/2019 Do You Or Have You Ever Used E-cigarettes Or Vape? Never Used Electronic Cigarettes Information not available 12/20/2019 Live Alone Or With Others? With Others Information not available 12/20/2019 What Was The Date Of Your Most Recent Tobacco Screening? 01/18/2024 Information not available 01/18/2024 How Many Children Do You Have? 4 Information not available 09/18/2014 Performs Monthly Self-breast Exam? Yes Information no t available 12/20/2019 Do You Use Protection During Sex? No Information not available 12/20/2019 What Is Your Relationship Status? Information not available 09/18/2014 Seat Belts Used Routinely Yes Information not available 12/20/2019 Are You Sexually Active? Yes Information not available 12/20/2019 Do You Or Have You Ever Used Smokeless Tobacco? Never Used Smokeless Tobacco Information not available 12/20/2019 How Much Tobacco Do You Smoke? No Information not available 12/20/2019 General Stress Level Low Information not available 12/20/2019 Do You Use Sunscreen Routinely? Yes Information not available 12/20/2019 Has Tobacco Cessation Counseling Been Provided? No Information not available 12/27/2020 On What Date Was Tobacco Cessation Counseling Provided? 12/27/2020 Information not available 12/27/2020 Do You Or Have You Ever Used Any Other Forms Of Tobacco Or Nicotine? No Information not available 12/27/2020 Sex: Female Functional Status Question Answer Note LastModified by Organization D etails LastModified Time What is your exercise level? Moderate Information not available 12/20/2019 Mental Status None recorded. Family History Relationship Description Onset Age of this Age Resolved Age Notes LastModified by Organization Details LastModified Time Maternal Grandmother Malignant tumor of breast [email or web address] Not available 12:22:42 Notes:other cancer Medical History Condition Response Coronary Artery Disease N Kidney Cyst N Blood Diseases N Hyperthyroidism N Blood disorders N Blood Transfusion N MRSA N Emphysema N Depression N COPD N Blood Clots N Pneumonia N Premature N Peripheral Arterial Disease N Edema N TIA N Headaches/Migraines N Anxiety Disorder N Obesity N Polyps N Infertility N Acid Reflux (GERD) N Hematuria N Stroke N Neck Injury N Polio N Hospital Admission other than N Neurologic Disorder N Other Sleep Disorders N Rheumatoid Arthritis N Fibromyalgia N Abdominal Aortic Aneurysm Repair N Kidney Disease N Heart Conditions N Heart Disease/Heart Problems N Hospitalizations N Brain Tumors N Acne N Skin Problems N Eating Disorder N Meningitis N Constipation N Tuberculosis N Cerebral Palsy N Myocardial Infarction N Asthma N Substance Abuse N Peripheral Vascular Disease N Vertigo N Sleep Disorder N Cirrhosis N Pulmonary Embolism N Chicken Pox N Hematologic Disease N Flomax Use Past or Present N Anxiety/Depression N Thyroid Disease N Colon Cancer N Lung Disease N Glaucoma N Developmental or Behavioral Disorders N Bipolar N Pacemaker N Diverticulitis/Diverticulosis N Orthopedic Problems N Anesthesia Complications N Orthotics N Head Injury/Concussion N Congenital Anomalies N Potter Bite N Chronic Kidney Disease N Endometriosis N Liver Disease N Schizophrenia N Dialysis N Speech Delay N Chronic Obstructive Pulmonary Disease N Parkinson's Disease N Thyroid Problems N GI Problems N Developmental Delay N Anemia N Multiple Sclerosis N Immune System Disorder N Colon Polyps N Heart Attack (MT) N Diabetes N Cardiomyopathy N Blood Transfusions N Heart Problems/Murmur N Eye Trauma N Congestive Heart Failure (CHF) N Valvular Heart Disease N Hyperlipidemia N Double Vision N Abuse/Domestic Violence N Hepatitis B N Lupus N Epilepsy/Seizures N Reflux/GERD N Aneurysm N Heart Disease N Bronchitis N Pre-Eclampsia N Hypertension N Heart Failure N Other N Gout N High Blood Pressure N Atrial Fibrillation N Kidney Stones N Head Trauma/Injury N Congenital Heart Disease N Spine Problems N Gastrointestinal Disease N Lung Mass N Sinusitis N Obstructive Sleep Apnea N Muscle, Joint, or Bone Problems N Autoimmune disease N Vision or Eye Problems N Arthritis N Blood Clot N Cancer N Seasonal allergies N Leg or Foot Ulcers N Raynaud's Disease N Aortic Aneurysm N Arrhythmia N Headaches N Heart Problems N Ambloypia N Ear or Hearing Problems N Hyperparathyroidism N Migraines N Artificial Joints N Kidney or Bladder Problems N NSAID Use N Encephalitis N PTSD N Ulcers N Prostate Hypertrophy N Bleeding Disorder N AIDS/HIV N Urinary Tract Infection N Back Problems N Allergies N Atrial Flutter N GERD/Reflux N Hepatitis N Autism Spectrum Disorder (ASD) N Breast Cancer N Hernia N Hypothyroidism N Breast Problem N Genitourinary Disease N Deep Vein Thrombosis N Varicose Veins N Cystic Fibrosis N Hearing Loss N Developmental Problems N Carotid Disease N Vitamin D Deficiency N ADHD N Bladder or Kidney Problems N High Cholesterol N [place]iers N Valvular Abnormalities N Psychiatric/Mental Health Condition N Organ Transplant N Foot Deformity N Allergies/Hayfever N Dyslipidemia N Hyponatremia N Diabetic Eye Disease N Osteoporosis/Osteopenia N Back Pain N Proteinuria N Mental Illness N Neurological Problems N Ovarian Cancer N Bedwetting N Seizures/Epilepsy N Kidney Failure N Ocular trauma N Diverticulitis N Dementia N Sleep Apnea N Mental Problems N Warfarin Management N Osteoporosis N Gynecological History Statement/Question Response Abnormal Pap N Menses Monthly Y STIs/STDs No Date of Last Pap Smear 01/02/2022 Current Control Method Partner Vas ectomy Most Recent Mammogram 10/28/2023 LMP Unknown Obstetrics History GPAL:G 7 P 4 0 3 4 Type Value Full Term 4 Spontaneous 3 Living 4 Total 7 Immunizations Vaccine Type Date Status Note Provider Nam e and Address Organization Details Recorded Time Influenza, MDCK, quadrivalent, PF 12/10/2020 completed Sunita Starkey [place] [facility] 01/15/2023 13:54:09 Influenza, MDCK, quadrivalent, PF 12/16/2017 completed Sunita Star[place] [facility] 01/15/2023 13:54:09 COVID-19, mRNA, LNP-S, PF, 100 mcg/0.5mL dose or 50 mcg/0.25mL dose 05/02/2020 completed Sunita Star[place] [facility] 01/15/2023 13:54:09 COVID-19, mRNA, LNP-S, PF, 100 mcg/0.5mL dose or 50 mcg/0.25mL dose 05/30/2020 completed Sunita Star[place] [facility] 01/15/2023 13:54:09 COVID-19, mRNA, LNP-S, PF, 100 mcg/0.5mL dose or 50 mcg/0.25mL dose 02/09/2021 completed Sunita Star[place] [facility] 01/15/2023 13:54:09 Influenza, split virus, quadrivalent, PF 12/03/2019 completed Sunita Starkey, [place] [facility] 01/15/2023 13:54:09 Influenza, split virus, quadrivalent, PF 12/17/2021 completed Sun[place] [facility] 01/15/2023 13:54:09 Influenza, split virus, quadrivalent, PF 12/22/2018 completed Sun[place] [facility] 01/15/2023 13:54:09 Influenza, MDCK, quadrivalent, PF 11/15/2022 completed Sunita Starkey, [place] [facility] 01/15/2023 15:49:46 COVID-19, mRNA, LNP-S, PF, esha-sucrose, 30 mcg/0.3 mL 11/15/2022 completed Sunita Starkey, [place] [facility] 01/15/2023 15:49:46 HepB-CpG 12/15/2023 completed Sunita Starkey, [place] [facility] 01/18/2024 12:01:34 COVID-19, mRNA, LNP-S, PF, esha-sucrose, 30 mcg/0.3 mL 12/15/2023 completed Sunita Starkey, [place] [facility] 01/18/2024 12:01:34 Influenza, split virus, trivalent, PF 12/15/2023 completed Sunita Starkey, [place] [facility] 01/18/2024 12:01:34 Tdap 06/28/2013 completed Sunita Starkey, [place] [facility] 01/15/2023 13:54:09 Past Encounters Encounter ID Performer Location Encounter Start Date Encounter Closed Date Diagnosis/Indication Diagnosis SNOMED-CT Code Diagnosis ICD10 Code Diagnosis Note [id number] Christofer Patton ([facility] 205) [address] [place] [address] 10/12/2014 14:21:32 10/12/2014 16:35:26 Gynecologic examination [id number] MD [facility]er [facility] ([facility] [address]) [address] [place] [address] 10/16/2015 11:58:12 10/16/2015 12:47:19 Gynecologic examination [id number] Z01.450 [id number] RANDA Britton [facility] ([facility] [address]) [address] [place] [address] 09/10/2016 10:08:54 09/10/2016 15:25:21 Normal [id number] Z34.91 [id number] MD Christ[facility]er [facility] ([facility] [address]) [address] [place] [address] 10/09/2016 11:06:46 10/28/2016 19:01:35 Normal [id number] Z34.91 selwyn se from miscarriage [id number] O03.9 [id number] MD Christ[facility]er [facility] ([facility] [address]) [address] [place] [address] 10/28/2016 11:30:09 10/28/2016 12:51:49 Miscarriage without complication [id number] O03.9 [id number] MD Christofer Echevarria 15 [address] [place] [address] 08/19/2017 10:20:15 08/20/2017 16:20:46 Threatened miscarriage in first trimester [id number] O20.0 [id number] MD Christofer Echevarria 15 OB [address] [place] [address] 09/04/2017 10:08:43 09/08/2017 15:53:41 Miscarriage without complication [id number] O03.9 [id number] MD Christofer Echevarria 15 OB [address] [place] [address] 09/09/2018 11:00:32 09/10/2018 08:57:48 Gynecologic examination [id number] Z01.125 [id number] MD Christofer Echevarria 15 OB [address] [place] [address] 12/20/2019 14:20:57 12/21/2019 13:25:05 Gynecologic examination [id number] Z01.405 [id number] MD Christofer Echevarria 14 OB [address] [facility] [place] [address] 12/27/2020 13:48:33 12/28/2020 06:44:57 Gynecologic examination [id number] Z01.419 Screening for malignant neoplasm of breast [id number] Z12.39 [id number] MD Christofer Echevarria 14 OB [address] [facility] [place] [address] 01/02/2022 13:47:24 01/06/2022 12:41:38 Gynecologic examination [id number] Z01.419 Screening for malignant neoplasm of breast [id number] Z12.39 [id number] MD Christofer Echevarria 14 OB [address] [facility] [place] [address] 01/15/2023 15:35:40 01/19/2023 09:19:58 Gynecologic examination [id number] Z01.598 [id number] MD Christofer Echevarria 14 OB [address] [facility] [place] [address] 01/18/2024 11:51:24 01/23/2024 10:51:58 Depression screening [id number] Z13.31 Gynecologi c examination [id number] Z01.419 Health Concerns Section Related Observation LastModified by Organization Detai ls LastModified Time None Recorded Concern Status LastModified by Organization Details LastModified Time None Recorded Advance Directives Directive N: Payers Encounter Date Sequence Insurance Name Policy Number Policy Jamison Covered Member ID Jamison Member ID Guarantor Name 12/20/2019 1 [facility] [id number] Susan Kristen Quinn [id number] Susan Ball 12/27/2020 1 [facility] [id number] Susan Kristen Quinn [id number] Susan Kristen Quinn 01/02/2022 1 [facility] [id number] Susan Kristen Quinn [id number] Susan Kristen Quinn 01/15/2023 1 [facility] [id number] Susan Kristen Quinn [id number] Susan Kristen Quinn 01/18/2024 1 [place] [id number] Aryan Ball [id number] Susan Ball Notes Date Note Type Note Provider Name and Address Organization Details Recorded Time 12/20/2019 text/html Annual GYNReport ed bypatient.Menstrual cycle:Normal menses Urinary symptoms:No hematuria; No incontinence Vulva:No genital lesion Vagina:Normal vaginal discharge Breast:No breast pain; No breast lump; No nipple discharge Current Contraception:Oral contraceptives Sexual complaints:No sexual complaints; No pain during intercourse; Normal libido Menopausal Symptoms:No menopausal symptoms; Normal vaginal lubrication Psychological symptoms:No depression; No anxiety; No PMDD Ailyn Huffman MD Attn: Accounting,[address] [place], [place], [address] [place] [address], [facility] 12/20/2019 15:07:42 12/27/2020 text/html Annual GYNReport ed bypatient.Menstrual cycle:Severe dysmenorrhea Urinary symptoms:No hematuria; No incontinence Vulva:No genital lesion Vagina:Normal vaginal discharge Breast:No breast pain; No breast lump; No nipple discharge Current Contraception:Oral contraceptives Sexual complaints:No sexual complaints; No pain during intercourse; Normal libido Menopausal Symptoms:No menopausal symptoms; Normal vaginal lubrication Psychological symptoms:No depression; No anxiety; No PMDD Ailyn Huffman MD Attn: Accounting,[address] [place], [address] [place] [address], [facility] 12/27/2020 14:34:41 01/02/2022 text/html Annual GYNReport ed bypatient.Menstrual cycle:Severe dysmenorrhea Urinary symptoms:No hematuria; No incontinence Vulva:No genital lesion Vagina:Normal vaginal discharge Breast:No breast pain; No breast lump; No nipple discharge Current Contraception:Oral contraceptives Sexual complaints:No sexual complaints; No pain during intercourse; Normal libido Menopausal Symptoms:No menopausal symptoms; Normal vaginal lubrication Psychological symptoms:No depression; No anxiety; No PMDD Ailyn Huffman MD Attn: Accounting,[address] [place], [address] [place] [address], [facility] 01/02/2022 14:36:56 01/15/2023 text/html Annual GYNReport ed bypatient.Urinary symptoms:No hematuria; No incontinence Vulva:No genital lesion Vagina:Normal vaginal discharge Breast:No breast pain; No breast lump; No nipple discharge Current Contraception:Oral contraceptives Sexual complaints:No sexual complaints; No pain during intercourse; Normal libido Menopausal Symptoms:No menopausal symptoms; Normal vaginal lubrication Psychological symptoms:No depression; No anxiety; No PMDD Melanoma diagnosed and removed from left thigh this summerf/u has ruled 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 life 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 [employer] Ailyn Huffman MD Attn: Accounting,[address] [place], [address], [facility] 01/15/2023 16:20:20 01/18/2024 text/html Annual GYNReport ed bypatient.Urinary symptoms:No hematuria; No incontinence Vulva:No genital lesion Vagina:Normal vaginal discharge Breast:No breast pain; No breast lump; No nipple discharge Current Contraception:Oral contraceptives Sexual complaints:No sexual complaints; No pain during intercourse; Normal libido Menopausal Symptoms:No menopausal symptoms; Normal vaginal lubrication Psychological symptoms:No depression; No anxiety; No PMDD Melanoma diagnosed and removed from left thigh summer 2022f/u has ruled her life had her left thigh scar revised recently. 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 [employer] Ailyn Huffman MD Attn: Accounting,[address] [place], [address], [facility] 01/18/2024 12:32:21 OBGyn Episode Ob Episode Information Episode Created Date Number of Fetuses Patient Bloodtype Patient rh Status Prepregnancy Weight lbs Domestic Partner Domestic Partner Phone Father Name Firestopper Installer Status 09/19/19 15 1 CLOSED Fetus Data First Name Last Name Admitted to NICU Weight (g) Sex Living Outcome Pediatric Complications Fetus ID Race Codes Race Delivery Type 3007.31 496 F Full Term [id number] Vaginal Andrew Calculation Initial Andrew Date Initial Exam Date Initial Exam Provider Initial Ultrasound Date Last Menstrual Period Date Ultra Sound Weeks Gestation 0 Eighteen To Twenty Week Andrew Update Ultra Sound Date Fundal Height At Umbil Quickening Date Ultra Sound Latest Weeks Gestation Final Andrew Confirmed By Final Andrew Confirmed Date Final Andrew Date Ultra Sound Latest Days Gestation 0 0 Menstrual History Last Menstrual Date Menses Monthly On Bcp Conception Prior Menses Frequency Hcg Plus Date Menarche Onset Age Delivery Information Delivery Date Delivery Type Labor Anesthesia Weeks Gestation Incision Type Labor Labor Length Hrs Delivered By Post Complications Tubal Sterilization Discharge Date Comments 1 Regional-Ep idural GT Discharge Information Feeding Method Contraceptive Method Maternal HG B and HCT Levels Ob Episode Information Episode Created Date Number of Fetuses Patient Bloodtype Patient rh Status Prepregnancy Weight lbs Domestic Partner Domestic Partner Phone Father Name Firestopper Installer Status 09/19/19 15 1 CLOSED Fetus Data First Name Last Name Admitted to NICU Weight (g) Sex Living Outcome Pediatric Complications Fetus ID Race Codes Race Delivery Type 3401.94 F Full Term 69943 Vaginal Andrew Calculation Initial Andrew Date Initial Exam Date Initial Exam Provider Initial Ultrasound Date Last Menstrual Period Date Ultra Sound Weeks Gestation 0 Eighteen To Twenty Week Andrew Update Ultra Sound Date Fundal Height At Umbil Quickening Date Ultra Sound Latest Weeks Gestation Final Andrew Confirmed By Final Andrew Confirmed Date Final Andrew Date Ultra Sound Latest Days Gestation 0 0 Menstrual History Last Menstrual Date Menses Monthly On Bcp Conception Prior Menses Frequency Hcg Plus Date Menarche Onset Age Delivery Information Delivery Date Delivery Type Labor Anesthesia Weeks Gestation Incision Type Labor Labor Length Hrs Delivered By Post Complications Tubal Sterilization Discharge Date Comments 7 Regional-Ep idural 39 GT Discharge Information Feeding Method Contraceptive Method Maternal HG B and HCT Levels Ob Episode Information Episode Created Date Number of Fetuses Patient Bloodtype Patient rh Status Prepregnancy Weight lbs Domestic Partner Domestic Partner Phone Father Name Firestopper Installer Status 09/19/19 15 1 CLOSED Fetus Data First Name Last Name Admitted to NICU Weight (g) Sex Living Outcome Pediatric Complications Fetus ID Race Codes Race Delivery Type , Spontane ous 22723 Andrew Calculation Initial Andrew Date Initial Exam Date Initial Exam Provider Initial Ultrasound Date Last Menstrual Period Date Ultra Sound Weeks Gestation 0 Eighteen To Twenty Week Andrew Update Ultra Sound Date Fundal Height At Umbil Quickening Date Ultra Sound Latest Weeks Gestation Final Andrew Confirmed By Final Andrew Confirmed Date Final Andrew Date Ultra Sound Latest Days Gestation 0 0 Menstrual History Last Menstrual Date Menses Monthly On Bcp Conception Prior Menses Frequency Hcg Plus Date Menarche Onset Age Delivery Information Delivery Date Delivery Type Labor Anesthesia Weeks Gestation Incision Type Labor Labor Length Hrs Delivered By Post Complications Tubal Sterilization Discharge Date Comments 5 5 Discharge Information Feeding Method Contraceptive Method Maternal HG B and HCT Levels Ob Episode Information Episode Created Date Number of Fetuses Patient Bloodtype Patient rh Status Prepregnancy Weight lbs Domestic Partner Domestic Partner Phone Father Name Firestopper Installer Status 09/19/19 15 1 CLOSED Fetus Data First Name Last Name Admitted to NICU Weight (g) Sex Living Outcome Pediatric Complications Fetus ID Race Codes Race Delivery Type 3742.13 4 M Full Term [id number] Vaginal Andrew Calculation Initial Andrew Date Initial Exam Date Initial Exam Provider Initial Ultrasound Date Last Menstrual Period Date Ultra Sound Weeks Gestation 0 Eighteen To Twenty Week Andrew Update Ultra Sound Date Fundal Height At Umbil Quickening Date Ultra Sound Latest Weeks Gestation Final Andrew Confirmed By Final Andrew Confirmed Date Final Andrew Date Ultra Sound Latest Days Gestation 0 0 Menstrual History Last Menstrual Date Menses Monthly On Bcp Conception Prior Menses Frequency Hcg Plus Date Menarche Onset Age Delivery Information Delivery Date Delivery Type Labor Anesthesia Weeks Gestation Incision Type Labor Labor Length Hrs Delivered By Post Complications Tubal Sterilization Discharge Date Comments 8 [facility] Discharge Information Feeding Method Contraceptive Method Maternal HG B and HCT Levels Ob Episode Information Episode Created Date Number of Fetuses Patient Bloodtype Patient rh Status Prepregnancy Weight lbs Domestic Partner Domestic Partner Phone Father Name Firestopper Installer Status 09/19/19 15 1 CLOSED Fetus Data First Name Last Name Admitted to NICU Weight (g) Sex Living Outcome Pediatric Complications Fetus ID Race Codes Race Delivery Type 3088.96 152 F Full Term 99692 Vaginal Andrew Calculation Initial Andrew Date Initial Exam Date Initial Exam Provider Initial Ultrasound Date Last Menstrual Period Date Ultra Sound Weeks Gestation 0 Eighteen To Twenty Week Andrew Update Ultra Sound Date Fundal Height At Umbil Quickening Date Ultra Sound Latest Weeks Gestation Final Andrew Confirmed By Final Andrew Confirmed Date Final Andrew Date Ultra Sound Latest Days Gestation 0 0 Menstrual History Last Menstrual Date Menses Monthly On Bcp Conception Prior Menses Frequency Hcg Plus Date Menarche Onset Age Delivery Information Delivery Date Delivery Type Labor Anesthesia Weeks Gestation Incision Type Labor Labor Length Hrs Delivered By Post Complications Tubal Sterilization Discharge Date Comments 4 [facility] GT Discharge Information Feeding Method Contraceptive Method Maternal HG B and HCT Levels Ob Episode Information Episode Created Date Number of Fetuses Patient Bloodtype Patient rh Status Prepregnancy Weight lbs Domestic Partner Domestic Partner Phone Father Name Firestopper Installer Status 09/11/19 17 1 [facility] CLOSED Fetus Data First Name Last Name Admitted to NICU Weight (g) Sex Living Outcome Pediatric Complications Fetus ID Race Codes Race Delivery Type Demise [id number] Andrew Calculation Initial Andrew Date Initial Exam Date Initial Exam Provider Initial Ultrasound Date Last Menstrual Period Date Ultra Sound Weeks Gestation 03/27/2017 09/10/2016 09/10/2016 06/20/2016 10 Eighteen To Twenty Week Andrew Update Ultra Sound Date Fundal Height At Umbil Quickening Date Ultra Sound Latest Weeks Gestation Final Andrew Confirmed By Final Andrew Confirmed Date Final Andrew Date Ultra Sound Latest Days Gestation 0 03/27/19 18 0 Pre-rick Flowsheet Flowsheet Date 09/10/2016 Sanchez Score Blood Edema Fundus Height Fundus Units Glucose Ketones Leukocytes Nitrite Labor Signs Protein Cervic Dilation Cervic Effacement Cervic Station 11 wks 0cm 10% -4 Type Weight in lbs Pre/Post Dialysis Refused 139.330850806436 BP Diastolic BP Location Tested BP Systolic BP Type 68 106 sitting Fetus Heart Rate Present A Absent Fetus Movement Comments Retroverted uterus, likely c ause of not hearing FHTswill get early dating US Flowsheet Date 10/09/2016 Sanchez Score Blood Edema Fundus Height Fundus Units Glucose Ketones Leukocytes Nitrite Labor Signs Protein Cervic Dilation Cervic Effacement Cervic Station Type Weight in lbs Pre/Post Dialysis Refused 142.099143068875 BP Diastolic BP Location Tested BP Systolic BP Type 72 98 sitting Fetus Heart Rate Present Fetus Movement Comments No FHTs in room ; did US robert n in other office - no movement, no sign of FHTsWIll get confirmatory US and discuss options Menstrual History Last Menstrual Date Menses Monthly On Bcp Conception Prior Menses Frequency Hcg Plus Date Menarche Onset Age 0406/20/2016 Delivery Information Delivery Date Delivery Type Labor Anesthesia Weeks Gestation Incision Type Labor Labor Length Hrs Delivered By Post Complications Tubal Sterilization Discharge Date Comments 7 15.6 miscarriag e Discharge Information Feeding Method Contraceptive Method Maternal HG B and HCT Levels Ob Episode Information Episode Created Date Number of Fetuses Patient Bloodtype Patient rh Status Prepregnancy Weight lbs Domestic Partner Domestic Partner Phone Father Name Firestopper Installer Status 08/20/19 18 1 [facility] CLOSED Fetus Data First Name Last Name Admitted to NICU Weight (g) Sex Living Outcome Pediatric Complications Fetus ID Race Codes Race Delivery Type [id number] Andrew Calculation Initial Andrew Date Initial Exam Date Initial Exam Provider Initial Ultrasound Date Last Menstrual Period Date Ultra Sound Weeks Gestation 03/07/2018 08/19/2017 05/31/2017 0 Eighteen To Twenty Week Andrew Update Ultra Sound Date Fundal Height At Umbil Quickening Date Ultra Sound Latest Weeks Gestation Final Andrew Confirmed By Final Andrew Confirmed Date Final Andrew Date Ultra Sound Latest Days Gestation 0 03/07/19 19 0 Pre-rick Flowsheet Flowsheet Date 08/19/2017 Sanchez Score Blood Edema Fundus Height Fundus Units Glucose Ketones Leukocytes Nitrite Labor Signs Protein Cervic Dilation Cervic Effacement Cervic Station 10 wks Type Weight in lbs Pre/Post Dialysis Refused 143.405821844252 BP Diastolic BP Location Tested BP Systolic BP Type 75 126 sitting Fetus Heart Rate Present A Absent Fetus Movement Comments Normal NOB exam, couldnthear FHTs, US in office difficult with retroverted uterus - will clarify situation at [facility] Menstrual History Last Menstrual Date Menses Monthly On Bcp Conception Prior Menses Frequency Hcg Plus Date Menarche Onset Age 0405/31/2017 Delivery Information Delivery Date Delivery Type Labor Anesthesia Weeks Gestation Incision Type Labor Labor Length Hrs Delivered By Post Complications Tubal Sterilization Discharge Date Comments 8 11.3 miscarriag e Discharge Information Feeding Method Contraceptive Method Maternal HG B and HCT Levels
[2024-05-10 14:51] LABS: Alanine Aminotransferase 19 U/L (6-35); Albumin Level 4.6 g/dL (3.5-5.1); Alkaline Phosphatase 66 U/L (38-126); Anion Gap 11 mmol/L (4-12); Aspartate Amino Transferase 26 U/L (14-36); Bilirubin,Total 0.9 mg/dL (0.2-1.3); Blood Urea Nitrogen 20 mg/dL (7-17); Calcium 9.5 mg/dL (8.4-10.2); Carbon Dioxide 23 mmol/L (22-30); Chloride 105 mmol/L (98-107); Estimated Glomerular Filt Rate > 60; Glucose 96 mg/dL (65-110); Lactate Dehydrogenase 152 U/L (120-246); Potassium 3.8 mmol/L (3.4-5.0); Sodium 139 mmol/L (137-145)
== END 2024-05-10 11:06 | disposition home or self-care (01) ==
LOC: ANHLAB 11:06
PROVIDERS: Visit Provider Internal Medicine Hematology & Oncology
DX: C43.72 Malignant melanoma of left lower limb, including hip (principal)
CPT/HCPCS: 36415; 80053; 83615; 85025

== ENCOUNTER 2024-11-11 08:14 | Outpatient (CLI) | payer BC, SELFPAY ==
--- OUTSIDE RECORDS SUMMARY | 2024-11-11 08:17 | XMS_ITS | Clinical Summary ---
Author Organization [facility] Address [address] [place] [address] Care Team Providers Care Office Analyst Name Role Phone Leon Durán MD Primary Care Provider [phone] Christiano Calvin MD Unavailable [phone] Allergies Active Allergy Reactions Criticality Noted Date Comments Amoxicillin Rash Reaction: RASH Codeine Nausea only,Vomiting Reaction: NAUSEA, VOMITING, Fexofenadine Rash Reaction: RASH Medications predniSONE (DELTASONE) 10 mg tablet Take 4 tablets by mouth x 3 days. Then take 3 tablets by mouth x 3 d. Then take 2 tablets by mouth x 3 d. Then take 1 tablet by mouth x 3 d. 30 tablet 06/24/2024 Active Active Problems Problem Noted Date Diagnosed Date Encounter to establish care 05/08/2021 Assessment & Plan (05/08/2021 10:13 AM ELECTROFORMER): A initial well visit to establish care [...] Never Smokeless Tobacco: Never Social Connection and Isolation Panel Answer Date Recorded Frequency of Communication w ith Friends and Family Not on file 05/08/2021 Frequency of Social Gatherin gs with Friends and Family Not on file 05/08/2021 How often do you attend chur ch or tenriism services? 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 Not on file Not on file Obstetrics History Last Filed Vital Signs Vital Sign Reading Time Taken Comments Blood Pressure 120/80 05/08/2021 9:31 AM ELECTROFORMER Pulse 67 05/08/2021 9:31 AM ELECTROFORMER Temperature 36 C (96.8 F) 05/08/2021 9:31 AM ELECTROFORMER Respiratory Rate 16 05/08/2021 9:31 AM ELECTROFORMER Oxygen Saturation 98% 05/08/2021 9:31 AM ELECTROFORMER Inhaled Oxygen Concentration - - Weight 68 kg (150 lb) 05/08/2021 9:31 AM ELECTROFORMER Height 172.7 cm (5' 8) 05/08/2021 9:31 AM ELECTROFORMER Body Mass Index 22.81 05/08/2021 9:31 AM ELECTROFORMER Plan of Treatment Health Maintenance Due Date Last Done Comments Depression Screening 1981 Hepatitis C Screening 1981 Varicella Vaccines (1 of 2 - 13+ 2-dose series) 1994 Hepatitis B Screening 07/18/1999 HPV Vaccines (1 - 3-dose SCDM series) 2008 Cervical Cancer Screening 12/27/2021 12/27/2020 Regular Well Visit/Exam 18-64 05/08/2022 05/08/2021 DTaP/Tdap/Td Vaccine (2 - Td or Tdap) 06/29/2023 06/28/2013 Breast Cancer Screening-Mammogram 10/27/2024 10/28/2023, 10/28/2023, 08/15/2022, Additional history exists Covid-19 Vaccine ( season) 2024 02/09/2021, 05/30/2020, 05/02/2020 Influenza Vaccine (#1) 2024 , 12/03/2019, 12/22/2018, Additional history exists Pneumococcal vaccine <65 Aged Out No longer eligible based on patient's age to complete this topic Procedures Procedure Name Priority Date/Time Associated Diagnosis Comments HM PAP SMEAR WITH HPV Routine 12/27/2020 from Last 3 Months or Most Recently Relevant to Health Maintenance Results * HM PAP SMEAR WITH HPV (12/27/2020) Scribed Pap Smear w/HPV Normal Historical Provider HEALTH MAINTENANCE Final Result from Last 3 Months or Most Recently Relevant to Health Maintenance Insurance [facility] Care Teams Office Analyst Relationship Specialty Start Date End Date Leon Durán MD [address] [place] [address] PCP - General Family Medicine 05/07/21 Christiano Calvin MD [address] [place] [address] [address] [place] [address] [address] Consulting Physician Obstetrics and Gynecology 05/08/21
--- OUTSIDE RECORDS SUMMARY | 2024-11-11 08:17 | XMS_ITS | Clinical Summary ---
[facility] Address [address] [place] [address] [place] [address] Care Team Providers Care Sales Effectiveness Manager Name Role Phone Unavailable Primary Care Provider Unavailabl e Allergies Active Allergy Reactions Criticality Noted Date Comments Amoxicillin Rash Low 11/11/2022 Codeine Nausea and Vomiting Low 11/11/2022 Reaction: NAUSEA, VOMITING, Morphine Nausea and Vomiting Low 11/11/2022 Medications No known medications Active Problems No known active problems Encounters Date Type Department Care Team Description 10/04/2024 External Device Data ST[facility] ABSTRACTION Provider, Abstract 09/14/2024 External Device Data [facility] ABSTRACTION Provider, Abstract 09/13/2024 External Device Data [facility] ABSTRACTION Provider, Abstract 08/16/2024 External Device Data [facility] ABSTRACTION Provider, Abstract [...] Sign Reading Time Taken Comments Blood Pressure 148/102 05/13/2024 9:09 AM CDT Patient is nervous Pulse 71 05/13/2024 9:04 AM CDT Temperature 36.2 C (97.2 F) 05/13/2024 9:04 AM CDT Respiratory Rate 18 05/13/2024 9:04 AM CDT Oxygen Saturation 99% 05/13/2024 9:0 4 AM CDT Inhaled Oxygen Concentration - - Weight 71.8 kg (158 lb 3.2 oz) 05/13/2024 9:04 AM CDT Height 174 cm (5' 8.5) 11/11/2022 4:09 PM CDT Body Mass Index 23.7 11/11/2022 4:09 PM CDT Plan of Treatment Upcoming Encounters Date Type Department Care Team (Late st Contact Info) Description 11/16/2024 3:30 PM CDT Office Visit [facility] Oncology [facility] H[facility]ology [facility] [place] [address] [facility] [address] [place] [address] Shilo Canas MD [address] [facility] [address] [place] [address] Health Maintenance Due Date Last Done Comments HEPATITIS B VACCINES (1 of 3 - 19+ 3-dose series) 2000 HPV/Cotest (21-29) 2002 HPV VACCINES (1 - 3-dose SCD M series) 2008 CERVICAL CANCER SCREENING 07/18/2011 HPV/Cotest (30-65) 07/18/2011 PAP SMEAR 07/18/2011 DTAP/TDAP/TD VACCINES (2 - T d or Tdap) 06/29/2023 06/28/2013 Preventative Visit- Commercial 03/02/2024 1 03/19/2023, 01/15/2023, 01/02/2022, Additional history exists INFLUENZA VACCINE (#1) 2024 4, 11/15/2022, 12/17/2021, Additional history exists BREAST CANCER SCREENING 10/27/2024 10/28/19 24, 10/28/2023, 08/15/2022, Additional history exists COVID-19 Vaccine Completed 12/15/2023, , 02/09/2021, Additional history exists Insurance BS BLUE ACCESS/TRUE BLUE PPO
--- OUTSIDE RECORDS SUMMARY | 2024-11-11 08:17 | XMS_ITS | Clinical Summary ---
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 Encounters Date Type Department Care Team Description 11/03/2024 10:30 AM CDT - 11/03/2024 11:59 PM CDT Hospital Encounter [facility] [address] [place] [address] Christiano Calvin MD Discharge Disposition: Discharged to home or Selfcare 11/03/2024 Travel from Last 3 Months Family History Medical History Relation Name Comments Breast Cancer Maternal Grandmother Relation Name Status Comments Maternal Grandmother Social History Tobacco Use Types Packs/Day Years Used Date Smoking Tobacco: Never Assessed Comments No Sex and Gender Information Value Date Recorded Sex Assigned at Not on file Legal Sex Female 9:59 AM CDT Gender Identity Not on file Sexual Orientation Not on file Plan of Treatment Health Maintenance Due Date Last Done Comments Hepatitis C Virus (HCV) Screening 1981 Pap Smear 2002 Human Papillomavirus (HPV) Immunization (1 - 3-dose SCDM series) 2008 Cervical Cancer Screening (CCS) 07/18/2011 HPV/Cotest 07/18/2011 Hepatitis B Immunization (2 of 2 - CpG 2-dose series) 01/12/2024 12/15/2023 Influenza Immunization (#1) 10/31/202411/30, 11/15/2022, 12/17/2021, Additional history exists Mammogram 11/03/2025 11/03/2024, 10/01, 08/15/2022, Additional history exists Respiratory Syncytial Virus (RSV) Immunization (Adult) (1 - 1-dose 75+ series) 2056 DTaP/Tdap/Td Immunization Discontinued 06/28/2013 TdaP Immunization Completed 06/28/2013 SARS-COV-2 Immunization Completed 12/15/19 24, 11/15/2022, 02/09/2021, Additional history exists Discussion re Starting/Frequency of Mammograms Completed 11/03/2024, 10/28/2023, 08/15/2022, Additional history exists Meningococcal Immunization (ACWY) Aged Out No longer eligible based on patient's age to complete this topic Pneumococcal Immunization Combined Aged Out No longer eligible based on patient's age to complete this topic Rotavirus Immunization Aged Out No lo nger eligible based on patient's age to complete this topic Procedures Procedure Name Priority Date/Time Associated Diagnosis Comments [facility] SCREENING BILATERAL DIGITAL W CAD W LAURA Routine 11/03/2024 11:00 AM CDT Encounter for screening mammogram for malignant neoplasm of breast from Last 3 Months Results * [facility] SCREENING BILATERAL DIGITAL W CAD W LAURA (11/03/2024 11:00 AM CDT) Anatomical Region Laterality Modality breast Bilateral Mammography 11/03/2024 11:0 0 AM CDT Impressions 11/03/2024 12:47 PM CDT IMPRESSION: No mammographic evidence of malignancy. RECOMMENDATION: If there is no interval change in the clinical breast examination, the patient can return in one year for annual screening mammography. Narrative 11/03/2024 12:47 PM CDT Exam: [facility] SCREENING BILATERAL DIGITAL W CAD W LUARA. Direct digital imaging using CAD. Tomosynthesis images were obtained and reviewed. Clinical History: Screening. No current complaints. Comparison: 10/28/2023 Technique: Two standard digital views of both breasts were performed and reviewed with the aid of R2 CAD. Tomosynthesis images were obtained and reviewed. Findings: The breasts are heterogeneously dense, which may obscure masses. There are no suspicious masses, microcalcifications or areas of nonsurgical architectural distortion. BIRADS 1: Negative Procedure Note Donaldo Garcia MD - 11/03/2024 Exam: [facility] SCREENING BILATERAL DIGITAL W CAD W LAURA. Direct digitalimaging using CAD. Tomosynthesis images were obtained and reviewed. Clinical History: Screening. No current complaints. Comparison: 10/28/2023 Technique: Two standard digital views of both breasts were performed andreviewed with the aid of R2 CAD. Tomosynthesis images were obtained andreviewed. Findings: The breasts are heterogeneously dense, which may obscure masses. There are no suspicious masses, microcalcifications or areas ofnonsurgical architectural distortion. BIRADS 1: Negative IMPRESSION: No mammographic evidence of malignancy. RECOMMENDATION: If there is no interval change in the clinical breastexamination, the patient can return in one year for annual screeningmammography. Christiano Calvin MD IMG MAMMO ORDERABLES F inal Result from Last [address] [place] [address] [facility] Care Teams File Clerk Relationship Specialty Start Date End Date Leon Durán MD [address] [place] [address] PCP - General Family Medicine 07/24/21
[2024-11-11 08:33] LABS: Hematocrit 41.3 % (37.0-47.0); Hemoglobin 13.7 g/dL (12.0-15.0); Immature Granulocyte Percent A 0.0 % (0-0.5); Lymphocytes Absolute Auto 1.41 K/mm3 (0.9-3.2); Mean Corpuscular HGB Conc 33.2 g/dl (32-36); Mean Corpuscular Hemoglobin 30.2 pg (26-34); Mean Corpuscular Volume 91.2 fl (80-100); Nucleated Red Blood Cells Absolute Auto 0.000 K/mm3 (0.0-0.012); Nucleated Red Blood Cells Perc 0.0 % (0.0-0.2); Platelet Count Result 142 k/mm3 (150-375); Red Blood Count 4.53 M/mm3 (4.2-5.4); White Blood Count 4.3 K/mm3 (4.5-10.0)
[2024-11-11 15:36] LABS: Alanine Aminotransferase 16 U/L (6-35); Albumin Level 4.6 g/dL (3.5-5.1); Alkaline Phosphatase 65 U/L (38-126); Anion Gap 8 mmol/L (4-12); Aspartate Amino Transferase 58 U/L (14-36); Bilirubin,Total 0.7 mg/dL (0.2-1.3); Blood Urea Nitrogen 17 mg/dL (7-17); Calcium 9.0 mg/dL (8.4-10.2); Carbon Dioxide 24 mmol/L (22-30); Chloride 104 mmol/L (98-107); Glucose 84 mg/dL (65-110); Potassium 4.0 mmol/L (3.4-5.0); Sodium 136 mmol/L (137-145); Total Protein 8.1 g/dL (6.3-8.2); Uric Acid 3.2 mg/dL (2.5-7.5)
[2024-11-11 15:43] LABS: Estimated Glomerular Filt Rate > 60
== END 2024-11-11 08:15 | disposition home or self-care (01) ==
LOC: ANHLAB 08:14
PROVIDERS: Visit Provider Internal Medicine Hematology & Oncology
DX: C43.72 Malignant melanoma of left lower limb, including hip (principal)
CPT/HCPCS: 36415; 80053; 83615; 84550; 85025

== ENCOUNTER 2024-11-16 17:08 | Outpatient (CLI) | payer BC, SELFPAY ==
--- NOTE | ~2024-11-16 | CT_ITS ---
EXAMINATION: CT abdomen w con DATE: 11/16/2024 17:54 INDICATION: Elevated liver function tests TECHNIQUE: Computed tomography (CT) of the abdomen and pelvis was performed with 100 mL Omnipaque-350 intravenous contrast. Automated exposure control and iterative reconstruction technique were employed. The dose-length product was 170.98 mGy-cm. COMPARISON: None FINDINGS: Lung bases are clear. Heart size is normal. No pericardial or pleural effusion. Liver, gallbladder, spleen, pancreas, bilateral adrenal glands and kidneys are normal. Common bile duct is mildly dilated to 8 mm with no evident distal obstructing stone or mass. No intrahepatic biliary ductal dilation. Visualized portions of bowels are unremarkable with no wall thickening or obstruction. No pathologically enlarged abdominal or upper pelvic lymphadenopathy. Bones are unremarkable. IMPRESSION: 1. Mild dilation the common bile duct 8 mm without evident obstructing stone or mass. Correlate with liver function tests and if clinically indicated could consider MRI/MRCP for further evaluation. Reviewed, dictated and finalized at location A. IMPRESSION: 1. Mild dilation the common bile duct 8 mm without evident obstructing stone or mass. Correlate with liver function tests and if clinically indicated could co nsider MRI/MRCP for further evaluation.
[2024-11-16 17:45] LABS: Estimated Glomerular Filt Rate > 60
== END 2024-11-16 17:09 | disposition home or self-care (01) ==
PROVIDERS: Visit Provider Internal Medicine Hematology & Oncology
DX: K83.8 Other specified diseases of biliary tract (principal); R94.5 Abnormal results of liver function studies
CPT/HCPCS: 74160; Q9967